=== PATIENT | male | born 1985 | race Caucasian/White ===

== ENCOUNTER 2022-04-11 18:25 | Emergency (ER) | payer OTHER, BC, SELFPAY ==
--- NOTE | ~2022-04-11 | XR_ITS ---
EXAMINATION: XR chest 2V DATE: 04/11/2022 18:57 INDICATION: Chest tightness. TECHNIQUE: Frontal and lateral views of the chest were obtained. COMPARISON: None. FINDINGS: The chest demonstrates clear lungs without pneumonia, pleural effusion, or pneumothorax. Th e heart size is normal. IMPRESSION: 1. No acute cardiopulmonary disease. Reviewed, dictated and finalized at location A.
[2022-04-11 18:28] VITALS: PULSE 74; RESP 18; TEMP 36.8; O2SAT 99
--- NOTE | 2022-04-11 18:32 | ECG_ITS ---
Measurements Intervals [employer] Rate: 71 P: 52 RI: 172 QRS: 43 QRSD: 98 T: 24 QT: 351 QTc: 383 Interpretive Statements SINUS RHYTHM BASELINE ARTIFACT- I, III NORMAL ECG Electronically Signed On 04-11-2022 21:14:06 CDT by John Espinoza D.O.
[2022-04-11 18:33] VITALS: BP 152/102
[2022-04-11 18:42] LABS: Basophils Absolute Auto 0.1 K/mm3 (0.0-0.1); Basophils Percent Auto 0.5 % (0.2-1.2); Eosinophils Percent Auto 0.2 % (0-4.4); Hematocrit 43.4 % (42.0-52.0); Hemoglobin 14.5 g/dL (14.0-18.0); Immature Granulocyte Absolute 0.03 K/mm3 (0.00-0.031); Immature Granulocyte Percent A 0.3 % (0-0.5); Lymphocytes Absolute Auto 2.01 K/mm3 (0.9-3.2); Lymphocytes Percent Auto 18.5 % (18.3-44.2); Mean Corpuscular HGB Conc 33.4 g/dl (32-36); Mean Corpuscular Volume 89.7 fl (80-100); Monocytes Absolute Auto 1.1 K/mm3 (0.1-0.6); Monocytes Percent Auto 9.9 % (2.6-8.5); Neutrophils Absolute Auto 7.7 K/mm3 (1.3-6.7); Neutrophils Percent Auto 70.6 % (45.5-73.1); Platelet Count Result 286 k/mm3 (150-375); Red Blood Count 4.84 M/mm3 (4.6-6.20); White Blood Count 10.8 K/mm3 (4.5-10.0)
[2022-04-11 18:52] LABS: Alanine Aminotransferase 20 U/L (6-50); Albumin Level 4.7 g/dL (3.5-5.1); Alkaline Phosphatase 77 U/L (38-126); Anion Gap 6 mmol/L (8-16); Aspartate Amino Transferase 28 U/L (17-59); Bilirubin,Total 0.6 mg/dL (0.2-1.3); Blood Urea Nitrogen 21 mg/dL (9-20); Calcium 9.7 mg/dL (8.4-10.2); Carbon Dioxide 26 mmol/L (22-30); Chloride 106 mmol/L (98-107); Estimated CRCL calculation 124 ml/min; Estimated Glomerular Filt Rate > 60; Glucose 91 mg/dL (65-110); Lipase 68 U/L (23-300); Potassium 3.9 mmol/L (3.4-5.0); Prothrombin Time 12.5 Seconds (11.1-14.7); Sodium 138 mmol/L (137-145)
[2022-04-11 18:53] LABS: Partial Thromboplastin Time 28.9 SECONDS (22.3-36.8)
--- NOTE | 2022-04-11 18:53 | ED.ARRPALP ---
HPI - Arrhythmia/Palpitations General Chief Complaint: Arrhythmia/Palpitations Stated Complaint: Heart palpations Time Seen by Provider: 04/11/22 18:36 History of Present Illness HPI narrative: 36-year-old male presents the emergency room for evaluation of palpitations. 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 Reports having multiple episodes of 78 seconds of palpitations, that are associated with some shortness of breath and dizziness. Reports having similar symptoms last week but they only occurred once. States that he has had 2 sleep studies and they were both negative even though he snores. Presently, patient is alert and oriented x3 with no complaints. Denies any chest pain, shortness of breath. Denies recreational drug use. Related Data Home Medications Medication Instructions Recorded Confirmed cetirizine 10 mg capsule (Zyrtec) mg 04/11/22 ibuprofen 200 mg tablet mg PRN Pain 04/11/22 pseudoephedrine-guaifenesin ER 60 tablet PO 04/11/22 mg-600 mg tablet,extend release 12hr (Mucinex D) Allergies Allergy/AdvReac Type Severity Reaction Status Date / Time No Known Allergies Allergy Verified 04/11/22 18:32 Review of Systems Review of Systems: CONSTITUTIONAL: Denies fever, chills, or sweats. EYES: Denies visual changes, redness, or discharge. ENT: Denies rhinorrhea, congestion, sore throat, or otalgia. CARDIOVASCULAR: Reports palpitations RESPIRATORY: Denies cough or dyspnea. GASTROINTESTINAL: Denies abdominal pain, nausea, vomiting, or diarrhea. GENITOURINARY: Denies dysuria or hematuria. SKIN: Denies rash or itching. MUSCULOSKELETAL: Denies back pain, joint pain, or myalgia. NEUROLOGIC: Denies headache, numbness, dizziness, or weakness. PSYCHIATRIC: Denies anxiety or depression. Exam Narrative: GENERAL: Well-appearing, well-nourished, no physical limitations, and in no acute distress. HEAD: Normocephalic, atraumatic. EYES: Conjunctivae normal, PERRLA and EOMI. NECK: Supple. No carotid bruits or JVD CHEST: Clear to auscultation. No respiratory distress. No wheezes rales or rhonchi. No tenderness. HEART: Regular rate and rhythm. No murmur heard. Normal peripheral pulses. ABDOMEN: Soft, nontender, nondistended, normal active bowel sounds. EXTREMITIES: Normal range of motion. No edema. No clubbing or cyanosis SKIN: Warm, dry, no rash. No noted wounds NEURO: No focal deficits. Alert and oriented x3. MAEW. CN's II-XI intact bilaterally, normal gait PSYCH: Cooperative. Normal mood and affect. Course Vital Signs Vital signs: Vital Signs Temperature 36.8 C 04/11/22 18:28 Pulse Rate 74 04/11/22 18:28 Respiratory Rate 18 04/11/22 18:28 Pulse Oximetry 99 04/11/22 18:28 Oxygen Delivery Room Air 04/11/22 18:28 Temperature 36.8 C 04/11/22 18:28 Pulse Rate 74 04/11/22 18:28 Respiratory Rate 18 04/11/22 18:28 Blood Pressure 152/102 H 04/11/22 18:33 Pulse Oximetry 99 04/11/22 18:28 Oxygen Delivery Room Air 04/11/22 18:28 MDM - Arrhythmia/Palpitations MDM Narrative Medical decision making narrative: 36-year-old presented with palpitations occurring intermittently today. Exam was without any evidence of volume overload. EKG shows no signs of acute ischemia. Single troponin was negative. Chest x-ray shows no signs of pneumothorax or pneumonia. Heart score is 0. When the patient was reporting dehydration, this is likely the cause of his palpitations. Discussed findings with patient we will have him follow-up with his regular doctor, and follow-up with cardiology if his palpitations continued. Lab Data Attestation: I reviewed the patient's lab results. Result diagrams: 04/11/22 18:36 04/11/22 18:36 Labs: Lab Results 04/11/22 04/11/22 04/11/22 Range/Units 18:36 18:36 18:36 WBC 10.8 H (4.5-10.0) K/mm3 RBC 4.84 (4.6-6.20) M/mm3 Hgb 14.5 (14.0-18.0) g/dL Hct 43.4 (42.0-
[2022-04-11 19:03] LABS: Troponin I < 0.012 ng/mL (0.000-0.034)
[2022-04-11] MEDS: SODIUM CHLORIDE 0.9% IV 1,000 ML 999 ML IV CONT ×2 (19:03→20:27)
[2022-04-11 20:13] LABS: Magnesium 2.1 mg/dL (1.6-2.3)
[2022-04-11 20:34] LABS: Appearance Urine Clear (Clear); Bilirubin Urine Negative (Negative); Blood Urine Negative (Negative); Color Urine Yellow (Yellow); Glucose Urine UA Negative (Negative); Ketones Urine Negative (Negative); Leukocyte Esterase Ur Negative LEU/UL (Negative); Nitrate Urine Negative (Negative); Protein Urine Negative (Negative); Specific Grav Ur >= 1.030 (1.001-1.035); Urobilinogen Urine 0.2 mg/dL (<2.0)
[2022-04-11 20:38] LABS: Add Urine Microscopic? NO
[2022-04-11 21:03] VITALS: PULSE 99; RESP 20; O2SAT 98
--- NOTE | 2022-04-19 03:46 | PC.NURSE ---
late entry: Pt had x2 NS 1000ML infused during this hospital visit. Per chart the first bag was started at 1850 and ended at 1949 the second bag was started at 1958 and ended 2058 per chart records.
== END 2022-04-11 21:10 | disposition home or self-care (01) ==
PROVIDERS: Emergency Medicine; Emergency Provider Nurse Practitioner Family
DX: R00.2 Palpitations (principal)
CPT/HCPCS: 36415; 71046; 80053; 81003; 83690; 83735; 84443; 84484; 85025; 85610; 85730; 93005; 96360; 99284; J7030